=== PATIENT | female | born 1975 | race Caucasian/White ===

== ENCOUNTER 2023-03-11 10:42 | Emergency (ER) | payer BC, SELFPAY ==
[2023-03-11] VITALS (36 sets, daily range): BP systolic 143–171; BP diastolic 72–119; PULSE 65–83; RESP 12–36; TEMP 36.4; O2SAT 95–100; BMI 35.0
--- NOTE | 2023-03-11 10:58 | DI.RAD.S_ITS ---
PROCEDURE: XR CHEST 1V INDICATIONS: suspected sepsis TECHNIQUE: One view of the chest was acquired. COMPARISON: None. FINDINGS: Surgical changes and devices: None. Lungs and pleura: Lungs are clear. No pleural effusions or pneumothorax. Mediastinum: Mediastinal contours appear normal. Heart size is normal. Bones and chest wall: No suspicious bony lesions. Overlying soft tissues appear unremarkable. IMPRESSION: No acute cardiopulmonary findings. Dictated by: Rolly Quiroga M.D. on 03/11/2023 at 10:24 Approved by: Rolly Quiroga M.D. on 03/11/2023 at 10:25
--- NOTE | 2023-03-11 11:00 | DI.US.S_ITS ---
PROCEDURE: US ABDOMEN LIMITED INDICATIONS: PAIN, N/V TECHNIQUE: Real-time focused scanning was performed of the abdomen, with image documentation. COMPARISON: None. FINDINGS: Liver measures 14.8 cm. Mobile foci of echogenicity are present within the gallbladder. The largest measures 3.1 cm at the fundus. Wall thickness is enlarged measuring 3.5 cm. Common bile duct is dilated measuring 16 mm. 2 stones are identified in the distal common bile duct measuring 6 mm and 4 mm. In addition there is mild intrahepatic dilation with a 5 mm stone at the common hepatic duct. IMPRESSION: Cholelithiasis with wall thickening most consistent with cholecystitis. Intra and extra biliary dilation with visualized stones most consistent with choledocholithiasis. Dictated by: Lilian Peterson M.D. on 03/11/2023 at 13:01 Approved by: Lilian Peterson M.D. on 03/11/2023 at 13:02
[2023-03-11 11:12] LABS: Add Manual Diff / Slide Review NO; Basophils Absolute Auto 100 /uL (0-100); Basophils Percent Auto 1.4 % (0-2); Eosinophils Absolute Auto 0 /uL (0-450); Eosinophils Percent Auto 0.5 % (2-4); Hematocrit 42.4 % (36-46); Hemoglobin 14.4 g/dL (12.0-16.0); Lymphocytes Absolute Auto 900 /uL (1100-4500); Lymphocytes Percent Auto 14.5 % (25-40); Mean Corpuscular HGB Conc 33.9 % (30-36); Mean Corpuscular Hemoglobin 29.9 PG (26-34); Mean Corpuscular Volume 88.3 fL (80-100); Monocytes Absolute Auto 300 /uL (0-900); Monocytes Percent Auto 5.6 % (3-14); Neutrophils Absolute Auto 4700 /uL (1500-7000); Platelet Count 283 X10^3/uL (150-400); Red Cell Distribution Width 13.6 % (11.6-14.8); White Blood Cell Count 6.1 X10^3/uL (4.5-11.0)
[2023-03-11] MEDS: ONDANSETRON 4 MG/2 ML INJ IV (11:16)
[2023-03-11] MEDS: SODIUM CHLORIDE 0.9% 1,000 ML 1000 ML IV (11:16)
[2023-03-11 11:26] LABS: Prothrombin Time 11.6 SECONDS (10.1-12.7)
[2023-03-11 11:29] LABS: PTT Partial Thromboplastin Tim 27 SECONDS (26-36)
[2023-03-11 11:30] LABS: Lactate (Lactic Acid) 1.5 mmol/L (0.7-2.1)
[2023-03-11 11:33] LABS: Alanine Aminotransferase 650 IU/L (<35); Albumin 4.6 g/dL (3.5-5.0); Albumin Globulin Ratio 1.4 (1.0-2.8); Alkaline Phosphatase 624 U/L (38-126); Aspartate Aminotransferase 469 IU/L (14-36); BUN Creatinine Ratio 17.1 (6-22); Bilirubin Total 6.1 mg/dL (0.2-1.3); Blood Urea Nitrogen 12 mg/dL (7-17); Calcium 9.7 mg/dL (8.4-10.2); Carbon Dioxide 19 mmol/L (22-32); Chloride 101 mmol/L (98-107); Estimated Glomerular Filt Rate > 60 mL/min (>60); Globulin 3.4 g/dL (1.7-4.1); Glucose 139 mg/dL (70-100); HEMOLYSIS < 15 (0-50); Lipase 1337 U/L (23-300); Potassium 3.8 mmol/L (3.4-5.1); Sodium 136 mmol/L (137-145)
[2023-03-11 11:35] LABS: Pregnancy Test Serum,Qual Negative (Negative)
[2023-03-11 11:42] LABS: NT-proBNP (BNP-Adult 18+) 37 pg/mL (<125)
[2023-03-11 11:50] LABS: Procalcitonin 0.04 ng/mL (<0.5)
[2023-03-11] MEDS: LORazepam 2 MG/ML INJ 0.5 MG IV (13:25)
--- NOTE | 2023-03-11 13:57 | ED.ABDPAIN ---
HPI - Abdominal Pain General Chief Complaint: Abdominal Pain Stated Complaint: vomiting, no drinking or eating t-2 Time Seen by Provider: 03/11/23 12:03 Source: patient and family Mode of arrival: Wheelchair History of Present Illness HPI narrative: This is a 47-year-old female with history of PCOS, hypothyroidism, hip and knee dysplasia who presents with about 1-2 weeks of feeling generally bad with persistent vomiting for the past 2 weeks, patient has completed nausea and vomiting that is persisting. Patient states she is had right upper abdominal pain little bit epigastric into the left radiating to her right flank. She states no fevers but has had chills. She states she is had persistent vomiting it has been clear. She denies diarrhea, no black or bloody stools. She states she would a bowel movement today. She denies dysuria, urgency or frequency. Patient denies chest pain or shortness of breath. Patient states she has been off her home medications for about 2 weeks secondary to the vomiting she has not been taking her oral contraceptives or her metformin which is prescribed for PCOS and prediabetes during her . 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 She was receiving Ozempic since last fall she is been on a low-dose her last injection was about 2 weeks ago. Prior surgeries include , she is had cortisone injections in her knees for dysplasia. No known drug allergies. No tobacco, last alcoholic drink was Easter she does not drink alcohol regularly. No illicit. Patient states her primary care is through [facility] they moved to the area recently from [facility]. Related Data Home Medications Medication Instructions Recorded Confirmed levonorgestrel-ethinyl estradiol 1 tab PO DAILY 03/11/23 03/11/23 0.1 mg-20 mcg tablet (Vienva) levothyroxine 25 mcg tablet 25 mcg PO QAM 03/11/23 metformin 500 mg tablet,extended 1,000 mg PO QAM 03/11/23 03/11/23 release 24 hr metformin 500 mg tablet,extended 500 mg PO QPM 03/11/23 03/11/23 release 24 hr pantoprazole 40 mg tablet,delayed 40 mg PO QAM 03/11/23 03/11/23 release semaglutide 1 mg/dose (4 mg/3 mL) See Rx Instructions .Route .COMPLEX 03/11/23 03/11/23 subcutaneous pen injector (Ozempic) Allergies Allergy/AdvReac Type Severity Reaction Status Date / Time No Known Drug Allergies Allergy Verified 03/11/23 10:57 Review of Systems Review of Systems ROS Unobtainable: All systems reviewed & are unremarkable except as noted in HPI and below Patient History Social History Smoking Status: Never smoker Smoking Status: Never smoker alcohol intake frequency: 0-2 drinks per day Substance Use Type: does not use Exam Narrative Exam Narrative: GENERAL: Alert and oriented x three, suddenly jaundiced, moderate distress. HEENT: Head normocephalic, atraumatic, EOMI, no scleral icterus, pupils reactive, face symmetric, moist mucous membranes NECK: Supple, full range of motion CARDIOVASCULAR: Regular rate and rhythm without murmurs, rubs or gallops. RESPIRATORY: Breath sounds equal bilaterally, no wheezes rales or rhonchi. ABDOMEN: Soft, positive for right upper quadrant tenderness. Mild left-sided tenderness in the upper abdomen. Patient's come minimal to no tenderness lower abdomen. Normoactive bowel sounds all 4 quadrants. No guarding or rebound, rigidity, no mass : No CVA tenderness EXTREMITIES: Normal range of motion, no clubbing or edema. Neurovascularly intact NEUROLOGICAL: Cranial nerves II through XII grossly intact. Moving all extremities SKIN: Warm, dry, no petechiae, no rashes or lesions. Initial Vital Signs Initial Vital Signs: Vital Signs Temperature 97.6 F 03/11/23 10:50 Pulse Rate 70 03/11/23 10:50 Respiratory Rate 18 03/11/23 10:50 Blood Pressure 166/78 H 03/11/23 10:50 Pulse Oximetry 100 03/11/23 10:50 Oxygen Delivery Method Room Air 03/11/23 10:50 Course Orders Ordered: ED Orders 03/11/23 10:58 XR chest 1V Stat RT Consult Eval and Treat NOW 03/11/23 11:00 US abdomen limited Stat 03/11/23 11:03 BNP [NT-proBNP (BNP-Adult 18+)] Stat Complete Blood Count AUTO DIFF Stat Comprehensive Metabolic Panel Stat Lactate (Lactic Acid) Stat Lipase Stat PTT Partial Thromboplastin Dl Stat Test Serum,Qual Stat Procalcitonin Stat Prothrombin Time INR Stat 03/11/23 12:22 Blood Culture Stat 03/11/23 13:23 Ictotest Urine Stat Urinalysis and Microscopic Stat 03/11/23 15:23 COVID19 -Nasal RAPID Stat Piperacillin Sod/Tazobactam (Sod 3.375 gm/ Sodium Chloride) 100 mls @ 25 mls/hr IV Q8H ESTEFANY Ondansetron HCl (Ondansetron 4 Mg Odt) 4 mg SL NOW PRN PRN Reason: Nausea And Vomiting Ondansetron HCl (Ondansetron 4 Mg/2 Ml Inj) 4 mg IV NOW PRN PRN Reason: Nausea And Vomiting Last Admin: 03/11/23 11:16 Dose: 4 mg Documented By: NAHID Discontinued Medications Sodium Chloride (Normal Saline 0.9%) 1,000 mls @ 1,000 mls/hr IV BOLUS ONE Stop: 03/11/23 11:57 Last Infusion: 03/11/23 12:18 Dose: 0 mls/hr Documented By: Admin: 03/11/23 11:16 Dose: 1,000 mls/hr Documented By: NAHID Piperacillin Sod/Tazobactam (Sod 4.5 gm/ Sodium Chloride) 100 mls @ 200 mls/hr IV NOW ONE Stop: 03/11/23 14:18 Last Infusion: 03/11/23 17:32 Dose: 0 mls/hr Documented By: Admin: 03/11/23 14:56 Dose: 200 mls/hr Documented By: NAHID Lactated Ringer's (Lactated Ringers) 2,563.71 mls @ 854.57 mls/hr 30 ml/kg infuse over 3 hr (2563.71 ml) IV NOW ONE Stop: 03/11/23 17:16 Last Admin: 03/11/23 14:56 Dose: 854.57 mls/hr Documented By: NAHID Piperacillin Sod/Tazobactam (Sod 4.5 gm/ Sodium Chloride) 100 mls @ 25 mls/hr IV Q8H ESTEFANY Ketorolac Tromethamine (Ketorolac 30 Mg/Ml Vial) 15 mg IV NOW ONE Stop: 03/11/23 14:18 Last Admin: 03/11/23 14:55 Dose: 15 mg Documented By: NAHID Lorazepam (Lorazepam 2 Mg/Ml Inj) 0.5 mg IV NOW ONE Stop: 03/11/23 13:22 Last Admin: 03/11/23 13:25 Dose: 0.5 mg Documented By: NAHID Ondansetron HCl (Ondansetron 4 Mg/2 Ml Inj) 4 mg IV NOW ONE Stop: 03/11/23 13:07 Last Admin: 03/11/23 13:28 Dose: Not Given Documented By: NAHID Vital Signs Vital signs: Vital Signs - 8 hr 03/11/23 10:50 03/11/23 10:54 03/11/23 10:54 Temperature 97.6 F Pulse Rate 70 70 Respiratory Rate 18 Blood Pressure 166/78 H 165/83 H Pulse Oximetry 100 100 Oxygen Delivery Method Room Air 03/11/23 11:00 03/11/23 11:00 03/11/23 11:15 Temperature Pulse Rate 69 72 Respiratory Rate Blood Pressure 152/81 H Pulse Oximetry 100 100 Oxygen Delivery Method 03/11/23 11:30 03/11/23 11:30 03/11/23 11:45 Temperature Pulse Rate 69 69 Respiratory Rate 18 25 H Blood Pressure 169/78 H Pulse Oximetry 100 100 Oxygen Delivery Method Room Air 03/11/23 12:00 03/11/23 12:00 03/11/23 12:15 Temperature Pulse Rate 75 68 Respiratory Rate 35 H 31 H Blood Pressure 154/74 H Pulse Oximetry 98 Oxygen Delivery Method 03/11/23 12:30 03/11/23 13:20 03/11/23 13:21 Temperature Pulse Rate 65 72 76 Respiratory Rate 20 Blood Pressure Pulse Oximetry 100 100 100 Oxygen Delivery Method 03/11/23 13:21 03/11/23 13:30 03/11/23 13:32 Temperature Pulse Rate 66 Respiratory Rate 19 Blood Pressure 144/119 H 171/80 H Pulse Oximetry 100 Oxygen Delivery Method 03/11/23 13:32 03/11/23 13:45 03/11/23 14:00 Temperature Pulse Rate 68 68 Respiratory Rate 26 H 22 Blood Pressure 154/78 H Pulse Oximetry 100 95 Oxygen Delivery Method 03/11/23 14:00 03/11/23 14:15 03/11/23 14:30 Temperature Pulse Rate 77 81 83 Respiratory Rate 22 36 H 29 H Blood Pressure Pulse Oximetry 99 98 98 Oxygen Delivery Method Room Air 03/11/23 14:31 03/11/23 14:31 03/11/23 14:45 Temperature Pulse Rate 82 71 Respiratory Rate 20 22 Blood Pressure 147/72 H Pulse Oximetry 99 98 Oxygen Delivery Method 03/11/23 15:00 03/11/23 15:00 03/11/23 15:15 Temperature Pulse Rate 73 75 Respiratory Rate 17 24 Blood Pressure 156/86 H Pulse Oximetry 98 100 Oxygen Delivery Method Room Air 03/11/23 15:30 03/11/23 15:45 03/11/23 16:00 Temperature Pulse Rate 71 69 80 Respiratory Rate 17 26 H 15 Blood Pressure Pulse Oximetry 100 98 100 Oxygen Delivery Method 03/11/23 16:15 03/11/23 16:30 Temperature Pulse Rate 79 78 Respiratory Rate 24 27 H Blood Pressure Pulse Oximetry 98 96 Oxygen Delivery Method MDM - Abdominal Pain Lab Data 03/11/23 11:03 03/11/23 11:03 Labs: Lab Results 03/11/23 03/11/23 03/11/23 Range/Units 11:03 11:03 11:03 WBC 6.1 (4.5-11.0) X10^3/uL RBC 4.80 (4.0-5.2) X10^6/uL Hgb 14.4 (12.0-16.0) g/dL Hct 42.4 (36-46) % MCV 88.3 (80-100) fL MCH 29.9 (26-34) PG MCHC 33.9 (30-36) % RDW 13.6 (11.6-14.8) % Plt Count 283 (150-400) X10^3/uL Neut % (Auto) 78.0 H (50-75) % Lymph % (Auto) 14.5 L (25-40) % [place] % (Auto) 5.6 (3-14) % Eos % (Auto) 0.5 L (2-4) % Baso % (Auto) 1.4 (0-2) % Neut # (Auto) 4700 (0449-6810) /uL Lymph # (Auto) 900 L (8987-7637) /uL [place] # (Auto) 300 (0-900) /uL Eos # (Auto) 0 (0-450) /uL Baso # (Auto) 100 (0-100) /uL PT 11.6 (10.1-12.7) SECONDS INR 1.0 (0.9-1.3) APTT 27 (26-36) SECONDS Sodium 136 L (137-145) mmol/L Potassium 3.8 (3.4-5.1) mmol/L Chloride 101 (98-107) mmol/L Carbon Dioxide 19 L (22-32) mmol/L BUN 12 (7-17) mg/dL Creatinine 0.70 (0.52-1.04) mg/dL Estimated GFR > 60 (>60) mL/min BUN/Creatinine Ratio 17.1 (6-22) Glucose 139 H (70-100) mg/dL Lactate (0.7-2.1) mmol/L Calcium 9.7 (8.4-10.2) mg/dL Total Bilirubin 6.1 H (0.2-1.3) mg/dL AST 469 H (14-36) IU/L ALT 650 H (<35) IU/L Alkaline Phosphatase 624 H (38-126) U/L NT-Pro-B Natriuret Pep (<125) pg/mL Total Protein 8.0 (6.3-8.2) g/dL Albumin 4.6 (3.5-5.0) g/dL Globulin 3.4 (1.7-4.1) g/dL Albumin/Globulin Ratio 1.4 (1.0-2.8) Lipase 1337 H (23-300) U/L Procalcitonin 0.04 (<0.5) ng/mL Serum , Qual (Negative) Urine Color Urine Appearance Urine pH (4.5-8.0) Ur Specific [place] (1.000-1.035) Urine Protein (Negative) Urine Glucose (UA) (Negative) g/dL Urine Ketones (NEGATIVE) Urine Occult Blood (Negative) Urine Nitrate (Negative) Urine Bilirubin (NEGATIVE) Ur Bilirubin Confirm (Negative) Urine Urobilinogen (0.2) E.U./dL Ur Leukocyte Esterase (NEGATIVE) Urine RBC (0-5/HPF) Urine WBC (0-5/HPF) Ur Squamous Epith Cells (0-5/HPF) Amorphous Sediment Urine Bacteria (None) Ur Culture Indicated? SARS-CoV-2 (PCR) (Negative) 03/11/23 03/11/23 03/11/23 Range/Units 11:03 11:03 11:03 WBC (4.5-11.0) X10^3/uL RBC (4.0-5.2) X10^6/uL Hgb (12.0-16.0) g/dL Hct (36-46) % MCV (80-100) fL MCH (26-34) PG MCHC (30-36) % RDW (11.6-14.8) % Plt Count (150-400) X10^3/uL Neut % (Auto) (50-75) % Lymph % (Auto) (25-40) % [place] % (Auto) (3-14) % Eos % (Auto) (2-4) % Baso % (Auto) (0-2) % Neut # (Auto) (3494-0452) /uL Lymph # (Auto) (1559-0007) /uL [place] # (Auto) (0-900) /uL Eos # (Auto) (0-450) /uL Baso # (Auto) (0-100) /uL PT (10.1-12.7) SECONDS INR (0.9-1.3) APTT (26-36) SECONDS Sodium (137-145) mmol/L Potassium (3.4-5.1) mmol/L Chloride (98-107) mmol/L Carbon Dioxide (22-32) mmol/L BUN (7-17) mg/dL Creatinine (0.52-1.04) mg/dL Estimated GFR (>60) mL/min BUN/Creatinine Ratio (6-22) Glucose (70-100) mg/dL Lactate 1.5 (0.7-2.1) mmol/L Calcium (8.4-10.2) mg/dL Total Bilirubin (0.2-1.3) mg/dL AST (14-36) IU/L ALT (<35) IU/L Alkaline Phosphatase (38-126) U/L NT-Pro-B Natriuret Pep 37 (<125) pg/mL Total Protein (6.3-8.2) g/dL Albumin (3.5-5.0) g/dL Globulin (1.7-4.1) g/dL Albumin/Globulin Ratio (1.0-2.8) Lipase (23-300) U/L Procalcitonin (<0.5) ng/mL Serum , Qual Negative (Negative) Urine Color Urine Appearance Urine pH (4.5-8.0) Ur Specific [place] (1.000-1.035) Urine Protein (Negative) Urine Glucose (UA) (Negative) g/dL Urine Ketones (NEGATIVE) Urine Occult Blood (Negative) Urine Nitrate (Negative) Urine Bilirubin (NEGATIVE) Ur Bilirubin Confirm (Negative) Urine Urobilinogen (0.2) E.U./dL Ur Leukocyte Esterase (NEGATIVE) Urine RBC (0-5/HPF) Urine WBC (0-5/HPF) Ur Squamous Epith Cells (0-5/HPF) Amorphous Sediment Urine Bacteria (None) Ur Culture Indicated? SARS-CoV-2 (PCR) (Negative) 03/11/23 03/11/23 Range/Units 13:23 15:23 WBC (4.5-11.0) X10^3/uL RBC (4.0-5.2) X10^6/uL Hgb (12.0-16.0) g/dL Hct (36-46) % MCV (80-100) fL MCH (26-34) PG MCHC (30-36) % RDW (11.6-14.8) % Plt Count (150-400) X10^3/uL Neut % (Auto) (50-75) % Lymph % (Auto) (25-40) % [place] % (Auto) (3-14) % Eos % (Auto) (2-4) % Baso % (Auto) (0-2) % Neut # (Auto) (2083-2405) /uL Lymph # (Auto) (5636-3029) /uL [place] # (Auto) (0-900) /uL Eos # (Auto) (0-450) /uL Baso # (Auto) (0-100) /uL PT (10.1-12.7) SECONDS INR (0.9-1.3) APTT (26-36) SECONDS Sodium (137-145) mmol/L Potassium (3.4-5.1) mmol/L Chloride (98-107) mmol/L Carbon Dioxide (22-32) mmol/L BUN (7-17) mg/dL Creatinine (0.52-1.04) mg/dL Estimated GFR (>60) mL/min BUN/Creatinine Ratio (6-22) Glucose (70-100) mg/dL Lactate (0.7-2.1) mmol/L Calcium (8.4-10.2) mg/dL Total Bilirubin (0.2-1.3) mg/dL AST (14-36) IU/L ALT (<35) IU/L Alkaline Phosphatase (38-126) U/L NT-Pro-B Natriuret Pep (<125) pg/mL Total Protein (6.3-8.2) g/dL Albumin (3.5-5.0) g/dL Globulin (1.7-4.1) g/dL Albumin/Globulin Ratio (1.0-2.8) Lipase (23-300) U/L Procalcitonin (<0.5) ng/mL Serum , Qual (Negative) Urine Color Yellow Urine Appearance Clear Urine pH 8.5 H (4.5-8.0) Ur Specific [place] 1.020 (1.000-1.035) Urine Protein Negative (Negative) Urine Glucose (UA) Negative (Negative) g/dL Urine Ketones 3+ H (NEGATIVE) Urine Occult Blood Negative (Negative) Urine Nitrate Negative (Negative) Urine Bilirubin 2+ H (NEGATIVE) Ur Bilirubin Confirm Positive H (Negative) Urine Urobilinogen >=8.0 (0.2) E.U./dL Ur Leukocyte Esterase Negative (NEGATIVE) Urine RBC None seen (0-5/HPF) Urine WBC 0-1/hpf (0-5/HPF) Ur Squamous Epith Cells 0-1 /hpf (0-5/HPF) Amorphous Sediment 2+ Urine Bacteria Occasional (0-1) (None) Ur Culture Indicated? Cult not indicated SARS-CoV-2 (PCR) Negative (Negative) Imaging Data US - abdomen: Radiologist's Impression: Close Abdomen Ultrasound (Signed) Lilian Peterson - 03/11/23 Chest X-Ray (Signed) Rolly Quiroga - 03/11/23 Launch?[address] [address] Ultrasound Report Signed Patient: Aylin Degroot MR#: [id number] : 1975 Acct:[id number] Age/Sex: 47 / F Date of Service: 03/11/23 Loc: ED Accession Number: [id number] ?? Procedure: US abdomen limited Ordering Provider: Alejandra Bush D.O. PROCEDURE: US ABDOMEN LIMITED ? INDICATIONS:? PAIN, N/V ? TECHNIQUE:? Real-time focused scanning was performed of the abdomen, with image documentation.? ? COMPARISON:? None. ? FINDINGS:? Liver measures 14.8 cm.? Mobile foci of echogenicity are present within the gallbladder.? The largest measures 3.1 cm at the fundus.? Wall thickness is enlarged measuring 3.5 cm.? Common bile duct is dilated measuring 16 mm.? 2 stones are identified in the distal common bile duct measuring 6 mm and 4 mm.? In addition there is mild intrahepatic dilation with a 5 mm stone at the common hepatic duct.? ? IMPRESSION:? ? Cholelithiasis with wall thickening most consistent with cholecystitis. ? Intra and extra biliary dilation with visualized stones most consistent with choledocholithiasis. ? ? Dictated by: Lilian Peterson M.D. on 03/11/2023 at 13:01 ? ? Approved by: Lilian Peterson M.D. on 03/11/2023 at 13:02?? ECG Data Attestation: I personally reviewed and interpreted this ECG as follows: Interpretation: Sinus rhythm rate of 60 9p are 142 QRS 86 QTC 475. Nonspecific change T-wave slightly inverted in lead 3. No ST elevation or depression otherwise noted. MDM Narrative Medical decision making narrative: This is a 47-year-old female who presents with complaint of persistent nausea and vomiting for 2 weeks with increasing and new right upper quadrant pain patient is quite tender. She is afebrile. Patient does not appear to have septic criteria but does appear unwell, AST ALT 469, ALT 650, alk-phos 624 lipase is 1337. Pro callus negative renal functions normal with CO2 of 19 but normal electrolytes. Lactate is 1.5. Glucose 139 with leftward shift but normal white count and hemoglobin. Patient's serum is negative tend to give urine patient was given fluids, antibiotics, antinausea and pain medication. EKG shows possible prolonged QT so avoiding QT prolonging agents. Patient's ultrasound shows choledocholithiasis as well as gallstones/cholelithiasis and thickening of the wall consistent with cholecystitis. Plan for transfer for ERCP and further treatment. Gastroenterology at [facility], spoke with Dr. Sammi Lopez who feels patient is appropriate for transfer asked to speak with the hospitalist. They agree with plan with antibiotics of Zosyn, fluids and antiemetics. Spoke with Dr. Gamino, hospitalist, reviewed patient's labs, vitals, recent history and medications he accepts for transfer. They are hopeful for bed this evening but noted could be 24-72 hours before bed availability. There are call out to other facilities at this time as well. Patient now has bed available at [facility]. She is feeling improved after pain medications, IV fluids, antibiotics and antinausea medication. Critical Care Time Critical Care Time Attestation: The high probability of a clinically significant, sudden or life threatening deterioration of the [] system(s) required my full and direct attention, intervention and personal management. The aggregate critical care time was [] minutes. This time is in addition to time spent performing reported procedures but includes the following: [x] Data Review and interpretation [x] Patient assessment and monitoring of vital signs [x] Documentation [x] Medication orders and management Discharge Plan Departure Patient Disposition: General Acute Hospital Clinical Impression: Choledocholithiasis with acute cholecystitis with obstruction, Pancreatitis Prescriptions: No Action levonorgestrel-ethinyl estrad [Vienva] 0.1-20 mg-mcg tablet 1 tab PO DAILY Patient Comments: TAKE 1 TABLET BY MOUTH DAILY. TAKE CONTINUOUSLY THROUGHOUT THE MONTH. SKIPPING PLACEBO WEEK levothyroxine 25 mcg tablet 25 mcg PO QAM Patient Comments: TAKE 1 TABLET BY MOUTH DAILY pantoprazole 40 mg tablet,delayed release (DR/EC) 40 mg PO QAM Patient Comments: TAKE 1 TABLET BY MOUTH EVERY MORNING BEFORE BREAKFAST metformin 500 mg tablet extended release 24 hr 1,000 mg PO QAM Patient Comments: TAKE 2 TABLETS BY MOUTH EVERY MORNING AND 1 TABLET EVERY EVENING. TAKE WITH FOOD metformin 500 mg tablet extended release 24 hr 500 mg PO QPM Patient Comments: TAKE 2 TABLETS BY MOUTH EVERY MORNING AND 1 TABLET EVERY EVENING. TAKE WITH FOOD Ozempic 1 mg/dose (4 mg/3 mL) pen injector See Rx Instructions .ROUTE .COMPLEX Rx Instructions: take as directed
--- NOTE | 2023-03-11 14:11 | PC.NURSE ---
patient reports feeling better after Ativan
[2023-03-11] MEDS: KETOROLAC 30 MG/ML VIAL 15 MG IV (14:55)
[2023-03-11] MEDS: LACTATED RINGERS 854.57 ML IV (14:56)
[2023-03-11] MEDS: PIPERACILLIN/TAZO 4.5 GM in SODIUM CHLORIDE 0.9% 100 ML IV (14:56)
[2023-03-11 15:32] LABS: Appearance Urine UA CLEAR; Bilirubin Urine UA 2+ (NEGATIVE); Color Urine UA YELLOW; Glucose Urine UA NEGATIVE (Negative); Ketones Urine UA 3+ (NEGATIVE); Leukocyte Esterase Urine UA NEGATIVE (NEGATIVE); Nitrite Urine UA NEGATIVE (Negative); Occult Blood Urine UA NEGATIVE (Negative); Protein Urine UA NEGATIVE (Negative); Urobilinogen Urine UA >=8.0 E.U./dL (0.2)
[2023-03-11 15:39] LABS: pH Urine UA 8.5 (4.5-8.0)
[2023-03-11 15:41] LABS: Ictotest Urine Positive (Negative)
[2023-03-11 15:42] LABS: Amorphous Sediment Urine 2+; Bacteria Urine Occasional (0-1); Culture Indicated Urine Cult Not Indicated; RBC Urine None Seen (0-5/HPF); Squamous Epithelial Cell Urine 0-1 /HPF (0-5/HPF); WBC Urine 0-1/HPF (0-5/HPF)
[2023-03-11 15:57] LABS: COVID19 -Nasal RAPID Negative (Negative)
--- NOTE | 2023-03-11 16:32 | PC.NURSE ---
Transfer Information: Received call from [facility] notifying of ready bed. Dr. Gamino, hospitalist accepting. GI Dr. Sammi Lopez for ERCP [facility], Room 9SW/ room 913 by the door Call report to [phone]
[2023-03-11] MEDS: MORPHINE 2 MG/ML INJ IV (18:57)
[2023-03-11] MEDS: PIPERACILLIN/TAZO 3.375 GM in SODIUM CHLORIDE 0.9% 100 ML IV (19:01)
== END 2023-03-11 19:49 | disposition short-term general hospital (02) ==
PROVIDERS: Emergency Provider Emergency Medicine
DX: K80.43 Calculus of bile duct with acute cholecystitis with obstruction (principal); K85.90 Acute pancreatitis without necrosis or infection, unspecified; R11.2 Nausea with vomiting, unspecified; Z20.822 Contact with and (suspected) exposure to COVID-19
CPT/HCPCS: 36415; 71045; 76705; 80053; 81001; 83605; 83690; 83880; 84145; 84703; 85025; 85610; 85730; 87040; 87635; 93005; 96361; 96365; 96366; 96375; 99284; C9803; J1885; J2060; J2270; J2405; J2543

== ENCOUNTER → 2024-09-09 13:43 | Outpatient (CLI) | payer BC, SELFPAY ==
[2024-09-09 14:35] LABS: Hematocrit 40.7 % (36-46); Hemoglobin 13.7 g/dL (12.0-16.0); Mean Corpuscular HGB Conc 33.6 % (30-36); Mean Corpuscular Hemoglobin 29.9 PG (26-34); Platelet Count 282 X10^3/uL (150-400); Red Blood Cell Count 4.57 X10^6/uL (4.0-5.2); Red Cell Distribution Width 12.9 % (11.6-14.8); White Blood Cell Count 5.4 X10^3/uL (4.5-11.0)
[2024-09-09 15:04] LABS: Alanine Aminotransferase 15 IU/L (<35); Albumin 4.2 g/dL (3.5-5.0); Albumin Globulin Ratio 1.5 (1.0-2.8); Alkaline Phosphatase 48 U/L (38-126); Aspartate Aminotransferase 23 IU/L (14-36); Bilirubin Total 0.5 mg/dL (0.2-1.3); Blood Urea Nitrogen 10 mg/dL (7-17); Calcium 9.7 mg/dL (8.4-10.2); Carbon Dioxide 25 mmol/L (22-32); Chloride 104 mmol/L (98-107); Cholesterol 243 mg/dL (140-199); Estimated Glomerular Filt Rate > 60 mL/min (>60); Globulin 2.8 g/dL (1.7-4.1); Glucose 98 mg/dL (70-100); HDL Cholesterol 63 mg/dL (40-60); HEMOLYSIS < 15 (0-50); LDL Cholesterol Calculated 155 mg/dL (<100); Potassium 4.2 mmol/L (3.4-5.1); Sodium 136 mmol/L (137-145); Triglycerides 125 mg/dL (35-150)
[2024-09-09 15:32] LABS: TSH w/ Reflex to FT4 1.84 uIU/mL (0.47-4.68)
[2024-09-09 16:07] LABS: HIV 1 & 2 Ab/Ag 4th Gen Combo NEGATIVE (NEGATIVE); Hep C Virus Ab w/Reflex Quant NEGATIVE s/c (NEGATIVE)
[2024-09-09 16:10] LABS: Hemoglobin A1C% w Est Avg Glu 5.2 % (4.0-6.0)
== END ==
PROVIDERS: PCP Family Medicine; Referring Provider Family Medicine; Visit Provider Family Medicine
DX: E78.2 Mixed hyperlipidemia (principal); E28.2 Polycystic ovarian syndrome; R73.01 Impaired fasting glucose; Z11.59 Encounter for screening for other viral diseases; Z11.4 Encounter for screening for human immunodeficiency virus [HIV]; N95.1 Menopausal and female climacteric states; E66.9 Obesity, unspecified; Z68.30 Body mass index [BMI] 30.0-30.9, adult
CPT/HCPCS: 36415; 80053; 80061; 83036; 84443; 85027; 86803; 87389

== ENCOUNTER → 2024-09-22 16:22 | Outpatient (CLI) | payer BC, SELFPAY ==
[2024-09-23 12:17] LABS: Fecal Immunochemical Test Negative (Negative)
== END ==
PROVIDERS: PCP Family Medicine; Referring Provider Family Medicine; Visit Provider Family Medicine
DX: Z12.11 Encounter for screening for malignant neoplasm of colon (principal)
CPT/HCPCS: 82274